=== PATIENT | male | born 1960 | race Caucasian/White ===

== ENCOUNTER 2020-03-17 21:16 | Emergency (ER) | payer BC ==
[2020-03-17] MEDS ORDERED: Lidocaine 1% (PF) 30 ML VIAL ONE (21:36)
--- NOTE | 2020-03-17 22:24 | RAD ---
Right foot 3 views HISTORY: Injury. FINDINGS: Lisfranc joint alignment is anatomic. Plantar arch is maintained. Mild osteoarthritic changes throughout the hindfoot and midfoot. No radiopaque foreign bodies evident. Plantar enthesophyte at the inferior aspect of the calcaneus. IMPRESSION : No acute osseous abnormalities are demonstrated. Mild degenerative changes. Plantar heel spur.
== END 2020-03-17 22:52 | disposition home or self-care (01) ==
LOC: NAV ERS 21:16
DX: S91.311A Laceration without foreign body, right foot, initial encounter (principal); F32.9 Major depressive disorder, single episode, unspecified; W25.XXXA Contact with sharp glass, initial encounter
CPT/HCPCS: 12002; J2001